=== PATIENT | male | born 1975 | race Caucasian/White ===

== ENCOUNTER 2017-12-29 10:57 | Outpatient (CLI) | payer BC, OTHER | END 2017-12-29 10:58 | disposition home or self-care (01) | LOC: DTY/OP 10:57 | PROVIDERS: ATTEND Surgery | DX: Z01.818 Encounter for other preprocedural examination (principal); E78.5 Hyperlipidemia, unspecified; I10 Essential (primary) hypertension; G47.30 Sleep apnea, unspecified; Z71.3 Dietary counseling and surveillance | CPT/HCPCS: 97802 ==